=== PATIENT | female | born 1950 | race Caucasian/White ===

== ENCOUNTER → 2017-12-04 | Outpatient (CLI) | payer MEDICARE, OTHER | LOC: M.RAD 10:50 | DX: Z12.31 Encounter for screening mammogram for malignant neoplasm of breast (principal); E11.9 Type 2 diabetes mellitus without complications ==

== ENCOUNTER → 2018-12-22 | Outpatient (CLI) | payer MEDICARE, OTHER | LOC: M.RAD 09:14 | DX: Z12.31 Encounter for screening mammogram for malignant neoplasm of breast (principal) ==

== ENCOUNTER → 2018-12-25 | Outpatient (CLI) | payer MEDICARE, OTHER | LOC: M.RAD 12-23 10:00 | DX: N63.23 Unspecified lump in the left breast, lower outer quadrant (principal) ==

== ENCOUNTER → 2020-05-17 | Outpatient (CLI) | payer MEDICARE, OTHER | LOC: M.RAD 10:27 | PROVIDERS: ATTEND Family Medicine | DX: Z12.31 Encounter for screening mammogram for malignant neoplasm of breast (principal) ==

== ENCOUNTER → 2021-06-27 | Outpatient (CLI) | payer MEDICARE, OTHER | LOC: M.RAD 10:53 | PROVIDERS: ATTEND Family Medicine | DX: Z12.31 Encounter for screening mammogram for malignant neoplasm of breast (principal); N63.20 Unspecified lump in the left breast, unspecified quadrant; N63.10 Unspecified lump in the right breast, unspecified quadrant ==

== ENCOUNTER → 2021-07-04 | Outpatient (CLI) | payer MEDICARE, OTHER | LOC: M.ULTRA 09:38 | PROVIDERS: ATTEND Family Medicine | DX: N60.01 Solitary cyst of right breast (principal); N60.02 Solitary cyst of left breast; M81.0 Age-related osteoporosis without current pathological fracture; N63.21 Unspecified lump in the left breast, upper outer quadrant; Z78.0 Asymptomatic menopausal state ==